=== PATIENT | female | born 1960 | race Caucasian/White ===

== ENCOUNTER 2017-02-21 09:23 | Inpatient (IN) ==
[2017-02-21 11:50] VITALS: BMI 25.0
[2017-02-21] MEDS ORDERED: DEXTROSE 50% SYRINGE 50ml (1 AMP) IVP PRN (12:45)
[2017-02-21] MEDS ORDERED: GLUCOSE ORAL GEL 40% 37.5gm PO PRN (12:45)
--- NOTE | 2017-02-21 13:37 | XRay Report ---
INDICATION: shortness of air PROCEDURE: CHEST 2-VIEWS UPRIGHT (PA & LAT) Encounter: Initial COMPARISON: June 20, 2015 FINDINGS: The lungs are clear without evidence of focal abnormal airspace opacity. There is no pleural effusion or pneumothorax. The heart size, mediastinal contours and pulmonary vascularity are within normal limits. Degenerative change in the spine. IMPRESSION: No acute cardiopulmonary disease. .
--- NOTE | 2017-02-21 13:47 | History & Physical Report ---
History of Present Illness Date: 02/21/17 Chief complaint: hypergylcemia, shortness of air. HPI: patient is a pleasant but profoundly non-compliant 56yo female known to our clinic. she was last in her usual state of health about 5 to 6 days ago. at about that time she started feeling progressively weak. she also developed pain and tenderness over the bladder as well as lower quadrants of the abdomen. she also developed some dysuria and increased freqeuncy. she has had diffuse body aches as well as an overall non-specific feeling of being unwell. aside from this she has been more SOA at rest and especially on exertion than usual. some increase in wheezing noted. runny nose noted as well. she was seen in the ER yesterday where vitals were stable. cbc was non acute but cmp showed sugars in the 500's and had mild pseudohyponatremia associated with this as well. troponin and EKG's were negative. UA was unremarkable except for glucosuria. for other information on this please see the notes in the EMR from that visit. patient notes her blood sugars have been as high as the 500's to 600's in general when she does check them which isn't often of late. it's hard to say whether she's been taking her medications appropriately. she was seen in the clinic today where she was feeling about the same. her a1C in clinic was greater than 14 and otherwise not readable. given patient's clinical dehydration, very high blood sugars and general non-compliance, it was opted to admit for observation and further workup. patient thinks she may have had fevers off an on. some chills. some mild to moderate diffuse body aches. she has had mild to moderate bifrontal headaches since all this started from the dehydration. come and go. not associated with any change in alertness/mentation at all and no other neurologic changes with it. no photophobia. no nuchal rigidity or pain and ROS negative for meninigitis/encephalitis. no stroke symptoms, seizure symptoms, focal neurologic deficits, cranial nerve symptoms at all. no ear pain, sinus pain, sore throat. no recent travel, sick exposures, camping, burrows exposures, rashes. no chest pain at all on rest or exertion. no new or changing orthopnea. no PND. no new edema. no leg asymmetry. no palpitations. no hemoptysis. occasional yellow sputum production noted. no dizziness, syncope, orthostatic symptoms right now. appetite generally poor with this. no abdominal pain other than noted above. abdominal pain not generally effected by food. no GERD symptoms, nausea, vomiting, diarrhea, constipation, bloody/ black stools, flank pain, renal colic symptoms. no urinary/bowel incontinance. no mood changes and patient denies depression symptoms, homicidal/suicidal ideations. no padmini, psychotic symptoms. ROS negative for altered mentation, obtundation, changes in baseline cognition. no falls, trauma or injuries. see above and below for other ROS. Review of Systems - Constitutional Constitutional: Present: as per HPI - EENMT Eyes: Present: as per HPI EENMT Comments: see above HPI. 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 - Musculoskeletal Musculoskeletal: Present: as per HPI. Absent: back pain, muscle weakness - Integumentary/Breasts Integumentary: Present: as per HPI Integumentary Comments: no new skin changes. no rashes. - Neurological Neurological: Present: as per HPI - Psychiatric Psychiatric: Present: as per HPI - Endocrine Endocrine: Present: as per HPI Endocrine Comments: no thyroid symptoms other than noted in the above. - Hematologic/Lymphatic Hematologic/Lymphatic: Present: as per HPI Hematologic/Lymphatic Comments: no abnormal bleeding. she states she did look a bit pale a few days ago but this has resolved per patient. - Allergic/Immunologic Allergic/Immunologic: Present: as per HPI Allergic/Immunologic: see above for allergies and ADR's. [facility] Patient Stated Medical History Cerebrovascular Accident Yes: 2009 R SIDE AFFECTED 2 STENTS INSERTED Dental Problems Yes: NO DENTURES Angina Yes Coronary Artery Disease Yes Hypertension Yes Other Cardiology Yes Asthma Yes Chronic Obstructive Pulmonary Yes Disease (COPD) Other Respiratory Yes: ALLERGIES Diabetes Mellitus Type 2 Yes: POOR CONTROL Hx Urinary Tract Infection Yes Other Hematologic Yes: mass on uterus had blood loss Cellulitis Yes: LEFT HAND FROM BIRD BITE Bipolar Disorder Yes Depression Yes Substance Use Disorder Yes: HX OF METH USE clean since 2012 Medical History Updates: Diabetes. Hypercholesterolemia. Hypertension. ALLERGIES. Coronary artery disease. Current COPD. CVA. Back pain. Anxiety. Depression. Drug abuse Surgical History: Cardiac cath. Cardiac stent. Hysterectomy Family History: -father . had T2DM and heart disease. -mother alive. has T2DM and heart disease. -lots of T2DM and heart disease in family in general. - Social History Smoking status: Current every day smoker Social history: -lives at home -current longtime smoker and patient states she only smokes 5 cigarettes per day now. -denies alcohol use -previous history of polysubstance abuse including methamphetamine but reportedly not active for years. Medications Home Medications Medication Instructions Recorded Confirmed Type Lisinopril 10 mg PO DAILY #0 12/13/14 02/21/17 History Gabapentin 300 mg PO QID #0 06/20/15 02/19/17 History Insulin Glargine,Hum.rec.anlog 72 unit SQ BID #0 06/20/15 02/21/17 History [Lantus Solostar] Albuterol Sulfate [Ventolin Hfa] 1 - 2 puff INH Q6H PRN #0 01/09/16 02/21/17 History Aspirin [Aspirin EC] 81 mg PO DAILY #0 01/09/16 02/21/17 History Atorvastatin Calcium 40 mg PO HS #0 01/09/16 02/21/17 History Buspirone HCl 30 mg PO BID #0 01/09/16 02/21/17 History Metformin HCl 500 mg PO BID #0 01/09/16 02/21/17 History Desvenlafaxine [Desvenlafaxine ER] 50 mg PO DAILY 02/19/17 02/19/17 History Allergies Allergy/AdvReac Type Severity Reaction Status Date / Time Penicillins Allergy Unknown EDEMA Verified 02/21/17 12:22 Exam Vital Signs: Temperature 97.3 F 02/21/17 11:48 Pulse Rate 68 02/21/17 11:48 Respiratory Rate 20 02/21/17 11:48 Blood Pressure 141/85 H 02/21/17 11:48 Pulse Oximetry 98 02/21/17 11:48 Oxygen Delivery Method Room Air Height: 1.55 m Weight: 60.2 kg Body Mass Index: 25.0 - Constitutional Present: no acute distress, cooperative. Absent: diaphoretic, disheveled, combative, agitated, somnolent, obtunded - Routine HEENT Exam Head: Present: normocephalic, atraumatic Eye: Present: EOMI, PERRL, normal accommodation. Absent: conjunctival icterus, scleral injection, conjunctivae pink, periorbital swelling, nystagmus ENT: Present: mucous membranes dry, oropharynx clear, nares patent, external ear normal, TM's clear bilaterally. Absent: sinus tenderness Comments: throat clear. no mastoid tenderness b/l at this time. - Routine Neck Exam Present: supple, full ROM, trachea midline. Absent: JVD, lymphadenopathy, thyromegaly, tenderness, swelling, tracheal deviation, trauma, meningismus Comments: no photophobia. no clinical evidence of meningitis at this time. - Routine Chest/Breast/Axilla Exam Chest wall: Absent: tenderness - Routine Respiratory Exam Present: wheezes (see below.). Absent: accessory muscle use, dyspnea, rales, respiratory distress, rhonchi, stridor, crackles, distant breath sounds Comments: diminished but still moving air failure well. no respiratory distress. mild bibasilar wheezes on end expiration at this time. all findings above bilateral. - Routine Cardiovascular Exam Present: RRR Comments: grade 2/6 murmur heard at LSB. no stigmata of heart failure. no edema bilaterally at this time. pulses normal in all 4 extremities bilaterally at this time. legs symmetrical and compartments soft b/l in LE's at this time. clinically well perfused in all 4 extremities at this time. - Routine Abdominal Exam Present: soft (x4.), normoactive bowel sounds (X4.), non distended (X4.), non tender (X4.). Absent: tenderness (X4.), distended (X4.), rebound (X4.), organomegaly (X4.), mass Comments: no evidence of acute abdomen at this time. - Routine Exam Comments: mild to moderate discomfort in palpation over bladder at this time. - Routine Extremities Exam Comments: see above. - Routine Back/Spine/Pelvis Exam Comments: no flank pain bilaterally. Micah's test negative b/l at this time. - Routine Skin Exam Comments: intact. no rashes or acute changes to uncovered areas. - Routine Neurological Exam Present: moving all extremities, normal tone, normal speech CN2-12 in tact. sensation/motor/muscle strength/DTR's normal and symmetrical b/ l in extremities X4. PERRLA. EOMI. no nystagmus. no photophobia or clinical evidence of meningitis at this time. consensual reflex in tact. gait stable and unchanged from previous baseline. - Routine Psychiatric Exam Present: normal affect, normal thought process, cooperative. Absent: suicidal ideation, homicidal ideation, auditory hallucinations, visual hallucinations, tactile hallucinations, depressed, anxious, agitated, paranoid, manic Comments: cognition and affect stable from patient's previous baseline. Results - Labs CBC & Chem 7: 02/21/17 13:15 02/21/17 13:15 Assessment and Plan DVT Prophylaxis: Lovenox GI Prophylaxis: other (PO diet.) Resuscitation Status: Do Not Intubate Assessment and Plan: dehydration, dysuria, urinary freqeuncy and weakness from uncontrolled T2DM, hyperglycemia SOA and mild COPD exacerbation Diabetic neuropathy bladder tenderness and bilateral lower quadrant pain HTN hyperlipidemia therapy non-compliance -admit to outpatient, routine vitals with call parameters, oxygen as needed , diabetic diet, I's and O's, daily weights, up with assist only, telemetry. -cbc, cmp, UA, urine culture, mg, phos, coags, troponin, CK, respiratory PCR , blood cx X2, sputum cx and gram stain, bnp lactic acid, procalcitonin, ketones now. if patient doesn't repond to current therapy a workup for PE is a consideration. -CXR, EKG, bedside PVR now. -cbc, cmp in the AM. -Dr. Alonso of endocrinology consulted. -start duonebs scheduled. start tessalon perles. start IV NS at 125ml/hr and considering more fluids depending on the above labs. continue home lantus BID, ASA, gabapentin. will see if patient is taking a statin. check GLUBS. start novolog s/s and hypoglycemia protocol. -hold home metformin and ventolin prn. -further management pending. depression anxiety disorder -continue home buspirone and desvenlafaxine. all other chronic medical conditions stable and no changes to plan of care at this time. ppx -SQ lovenox for DVT ppx pending the above. -PO diet as above for GI ppx -DNR/DNI. had extensive conversation with patient about indications for and details of cardiopulmonary rescuscitation including chest compressions, meds to regain appropriate heart rhythm/ restart heart, defibrillation, intubation and patient states she wants none of these. she was told that these can even be used as temporary measure (especially intubation) until such time as her body can support her own cardiorespiratory needs and she verbalizes understanding of all this. she still wants to be full DNR/DNI. -dispo heavily dependent on the above. - Time spent with patient greater than 35 minutes Sepsis Assessment - Evaluation SIRS Criteria: none
[2017-02-21] MEDS: ALBUTEROL/IPRATROPIUM 2.5mg-0.5mg/3ml NEB AEROSOL SCH ×2 (14:33→20:12)
--- NOTE | 2017-02-21 15:49 | Consult Note ---
- Consultation Pharmacy consult: Ciprofloxacin dosing The ciprofloxacin dose ordered for this patient is appropriate for complicated UTI. The following is from [employer]: Complicated (including pyelonephritis): Oral, immediate release: 250 to 500 mg every 12 hours for 7 to 14 days Oral, extended release (Cipro XR): 1,000 mg every 24 hours for 7 to 14 days IV: 200 to 400 mg every 8 to 12 hours for 7 to 14 days
[2017-02-21] MEDS: CIPROFLOXACIN PB 400 MG/200 ML BAG IV SCH (15:54)
[2017-02-21] MEDS: BENZONATATE 200 MG CAPSULE PO SCH ×2 (15:54→21:46)
[2017-02-21] MEDS: NS 1,000 ML IV SCH (15:55)
--- NOTE | 2017-02-21 16:49 | CT Scan Report ---
Indication: kidney stone protocol R flank pain PROCEDURE: CT renal wo con (stone nona): Encounter: Initial Comparison: None Technique: Axial CT images were performed through the abdomen and pelvis without intravenous contrast. Coronal and sagittal two-dimensional reformats. Automated Exposure Control and Iterative Reconstruction dose reducing techniques were utilized. Findings: Mild atelectasis in the lung bases. The unenhanced contours of the liver are unremarkable. The gallbladder is normal. The spleen, pancreas and adrenal glands are within normal limits. The bladder appears normal. Left kidney is normal. Right kidney is normal. No renal or ureteral stones. Uterus is absent. No free fluid. Mild sigmoid diverticulosis without evidence of acute diverticulitis. No bowel obstruction. The appendix is normal. Bone windows show mild degenerative change in the lower lumbar spine. Impression: No urolithiasis. No acute disease process seen. .
[2017-02-21] MEDS: INSULIN ASPART 100unit/ml INJECTION SQ PRN ×2 (17:20→22:19)
[2017-02-21] MEDS: GABAPENTIN 300 MG CAPSULE PO SCH ×2 (18:13→21:45)
[2017-02-21] MEDS ORDERED: INSULIN GLARGINE 100unit/ml INJECTION SQ SCH (21:00)
[2017-02-21] MEDS: BUSPIRONE 15 MG TABLET PO SCH (21:46)
[2017-02-21] MEDS: INSULIN GLARGINE 100unit/ml INJECTION SQ SCH (21:59)
[2017-02-21] MEDS ORDERED: HYDROCODONE/APAP 5mg/325mg TABLET PO PRN (22:48)
[2017-02-21] MEDS: ACETAMINOPHEN 325 MG TABLET PO PRN (23:08)
[2017-02-21] MEDS ORDERED: NS 500 ML IV ONE (23:43)
--- NOTE | 2017-02-22 00:34 | Progress Note ---
Subjective: called about O2 sats in high 80's and MAP's in 60's early this AM. patient seen at bedside. she actually feels much better. in addition to the previous history she denies any excessive tylenol or ibuprofen use. she also denies any history of intracranial bleeding, gastrointestinal bleeding, genitourinary bleeding, skin/soft tissue bleeding. her dysuria, is much improved. he lower abdominal and bladder pain is mostly gone now. energy has improved. no fatigue. she still has a mild to moderate bifrontal headache which is about the same from admission. no photophobia and ROS negative for meningitis. no altered mentation or confusion. she's not obtunded. when asked she notes her SOA from yesterday has completely resolved. she denies flank pain or pain around the kidney's. she has, since she's been here, had pain over the right SI joint. no falls, trauma or injuries to explain this. she's had this before off and on. no numbness/weakness/tingling down legs. no loss of bowel/bladder control. no vision changes, ear pain, sinus pain, sore throat. no URI symptoms. cough somewhat improved from yesterday and non-productive. no hemoptysis. no chest pain at rest or exertion. overall strength is improved. no fevers or chills. the pain to the back above is tender to touch. no new or changing headaches. no cranial nerve symptoms. no focal neurologic deficits. no new numbness/weakness/tingling anywhere. no seizure symptoms. no other abdominal pain. no nausea, vomiting, diarrhea, constipation, bloody/black stools. no BM since admission but she's only been here a short period of time. no bloody/black stools. no new urinary symptoms. she doesn't feel nearly as systemically unwell as she did before she came in. sugars have been more reasonable since admission. no new skin or soft tissue problems or rashes. no new edema or leg asymmetry. no recent PE or DVT risk factors. no mood changes. no new issues called on telemetry but the leads are failing at times. MONICA Winston is present for exam today. Objective Vital signs: Temperature 99.7 F 02/22/17 00:14 Pulse Rate 93 02/22/17 00:14 Respiratory Rate 18 02/22/17 00:14 Blood Pressure 91/52 02/22/17 00:14 Pulse Oximetry 90 02/22/17 00:14 Oxygen Delivery Method Room Air Rhythm: Normal Sinus Rhythm Body Mass Index: 25.0 - Constitutional Present: no acute distress, cooperative. Absent: combative, agitated, somnolent , obtunded Comments: very pleasant. short term memory in tact. - Routine HEENT Exam Head: Present: normocephalic, atraumatic Comments: no temporal artery tenderness or inflammation bilaterally at this time. - Routine Respiratory Exam Present: CTA bilaterally. Absent: accessory muscle use, dyspnea, decreased breath sounds, rales, respiratory distress, rhonchi, stridor, wheezes, crackles , distant breath sounds, diminished air movement Comments: lung sounds heard in all lung duncan b/l at this time. moving air well. no stridor or airway compromise. improved from admission overall. - Routine Cardiovascular Exam Comments: no changes from previous cardiac exam. stable from previous. legs symmetrical and compartments soft b/l in LE's at this time. pulses normal in extremities X4. extremities are warm and clinically well perfused in all 4 extremities at this time. not pale or diaphoretic at this time. no lower extremity edema bilaterally at this time. - Routine Abdominal Exam Present: soft (X4.), normoactive bowel sounds (X4.), non distended (X4.), non tender (X4.). Absent: tenderness (X4.), distended (X4.), rebound, guarding, firm, rigid, organomegaly Comments: no evidence of ascites or jaundice. no clinical evidence of acute abdomen at this time. - Routine Exam Comments: no tenderness over bladder area at this time. - Routine Extremities Exam Absent: calf tenderness, palpable cord, joint swelling, pallor, extremity cold to touch Comments: back examined. palpable tenderness over right SI joint. ROM generally unchanged grossly around that axis and only limited by pain. see above and below. - Routine Musculoskeletal Exam Musculoskeletal: Present: no joint swelling, moving extremities well - Routine Skin Exam Present: intact Comments: no new rashes or changes to uncovered areas from patient's usual baseline. - Routine Neurological Exam Present: alert, oriented X3, CN II-XII intact sensation/motor/muscle strength normal and symmetrical b/l in extremities X4 at this time. PERRLA. EOMI. no nystagmus. no photophobia and no clinical evidence of meningitis at this time. see above. no changes from previous exam from yesterday. - Routine Lymphatic Exam Lymphatic: Absent: lymphedema - Routine Psychiatric Exam Present: normal affect, normal thought process, cooperative. Absent: auditory hallucinations, visual hallucinations, tactile hallucinations, agitated, paranoid, manic Comments: affect and cognition at patient's usual baseline. Results - Labs CBC & Chem 7: 02/21/17 13:15 02/21/17 13:15 Microbiology Results: Microbiology 02/21/17 14:58 Urine, Voided (Cc/notcc) Urine Culture - Preliminary Culture Initiated - Results Pending 02/21/17 13:20 Peripheral/Iv Start Blood Culture - Preliminary Culture Initiated - Results Pending 02/21/17 13:15 Peripheral/Iv Start Blood Culture - Preliminary Culture Initiated - Results Pending Assessment and Plan DVT Prophylaxis: Lovenox GI Prophylaxis: other (PO diet.) Resuscitation Status: Do Not Intubate Assessment and Plan: dehydration, dysuria, urinary freqeuncy and weakness from uncontrolled T2DM, hyperglycemia acute complicated cystitis mild diabetic ketosis without clinical/lab evidence of ketoacidosis or hyperosmolar state. mild multifactorial transaminase and alk phos elevation which is asymptomatic sacroliliac joint dysfunction on the right X1 episode of hypotension and hypoxemia this AM. given other clinically improvement and physical exam findings this likely represents equipment failure. SOA and mild COPD exacerbation, resolved. Diabetic neuropathy bladder tenderness and bilateral lower quadrant pain HTN hyperlipidemia therapy non-compliance -continue outpatient, routine vitals with call parameters, oxygen as needed , diabetic diet, I's and O's, daily weights, up with assist only, telemetry. clinically patient looks excellent at bedside right now. will change out equipment and see if these issues normalize. -cbc generally normal. cmp with mild LFT elevation as above and otherwise unremarkable. mg, phos, coags, troponin, ck unremarkable. respiratory PCR unremarkable as was bnp. lactic acid, procalcitonin normal. ketones mildly elevated. GLUBS in 300's generally thus far. UA does show evidence of ketonuria which is no surprise. there is evidence of UTI as well. CXR yesterday normal. EKG non-acute yesterday and stable from previous. bedside PVR reportedly unremarkable. CT ab/pelvis with kidney stone protocol unremarkable and no pathology noted. see previous notes for other testing and results from this stay and from the last few days. -blood cx X2, urine cx, sputum cx and gram stain pending. repeat EKG, CXR now. echocardiogram ordered. -cbc, cmp ordered for AM. will add repeat troponin and bnp this AM also. move these labs up to be drawn right now. -continue duonebs scheduled, PO tessalon perles. bolus IV normal saline and then continue at IV NS at 125ml/hr. patient not clinically fluid overloaded at this time. continue IV cipro for now given the above and will likely convert to PO tomorrow given her risk factors for complicated UTI. continue home lantus BID for now and increase later on today most likely. see above for GLUBS. continue current ASA, gabapentin, novolog S/S, hypoglycemia protocol, GLUBS. -holding home metformin, statin and ventolin prn. -further management pending. depression anxiety disorder -continue home buspirone and desvenlafaxine. all other chronic medical conditions stable and no changes to plan of care at this time. ppx -SQ lovenox for DVT ppx. -PO diet as above for GI ppx -DNR/DNI. see previous notes for explaination of this. -dispo hopefully home later today but much depends on the above. - Time spent with patient 25 - 35 minutes Sepsis Assessment - Evaluation Sepsis screening result: No Definite Risk
[2017-02-22] MEDS ORDERED: IOHEXOL 350mg/ml 75ml INJECTION ONE (01:40)
[2017-02-22] MEDS ORDERED: NS 100 ML ONE ×2 (01:40→02:58)
[2017-02-22] MEDS ORDERED: SALINE FLUSH 10ml SYRINGE ONE (01:40)
[2017-02-22] MEDS: CIPROFLOXACIN PB 400 MG/200 ML BAG IV SCH ×2 (03:49→14:41)
[2017-02-22] MEDS: ALBUTEROL/IPRATROPIUM 2.5mg-0.5mg/3ml NEB AEROSOL SCH ×4 (03:57→20:29)
[2017-02-22] MEDS: NS 1,000 ML IV SCH ×3 (05:03→13:47)
[2017-02-22] MEDS: INSULIN ASPART 100unit/ml INJECTION SQ PRN ×4 (06:41→21:57)
[2017-02-22] MEDS: INSULIN GLARGINE 100unit/ml INJECTION SQ SCH (08:48)
[2017-02-22] MEDS: ACETAMINOPHEN 325 MG TABLET PO PRN ×2 (08:49→22:25)
[2017-02-22] MEDS: ENOXAPARIN 40 MG/0.4 ML INJECTION SQ SCH (08:49)
[2017-02-22] MEDS: GABAPENTIN 300 MG CAPSULE PO SCH ×4 (08:50→21:51)
[2017-02-22] MEDS: BUSPIRONE 15 MG TABLET PO SCH ×2 (08:50→21:51)
[2017-02-22] MEDS: Desvenlafaxine SR 50 MG TABLET PO SCH (08:51)
[2017-02-22] MEDS: ASPIRIN *EC* 81 MG TABLET PO SCH (08:51)
[2017-02-22] MEDS ORDERED: LISINOPRIL 10 MG TABLET PO SCH (09:00)
[2017-02-22] MEDS: BENZONATATE 200 MG CAPSULE PO SCH ×3 (10:49→21:51)
[2017-02-23] MEDS: ALBUTEROL/IPRATROPIUM 2.5mg-0.5mg/3ml NEB AEROSOL SCH ×4 (03:00→20:55)
[2017-02-23] MEDS: INSULIN ASPART 100unit/ml INJECTION SQ PRN ×4 (06:40→21:25)
[2017-02-23] MEDS: INSULIN GLARGINE 100unit/ml INJECTION SQ SCH ×3 (08:43→21:25)
[2017-02-23] MEDS: Desvenlafaxine SR 50 MG TABLET PO SCH (08:43)
[2017-02-23] MEDS: BUSPIRONE 15 MG TABLET PO SCH ×2 (08:43→21:26)
[2017-02-23] MEDS: GABAPENTIN 300 MG CAPSULE PO SCH ×4 (08:43→21:26)
[2017-02-23] MEDS: BENZONATATE 200 MG CAPSULE PO SCH ×3 (08:43→21:26)
[2017-02-23] MEDS: ASPIRIN *EC* 81 MG TABLET PO SCH (08:43)
[2017-02-23] MEDS: ENOXAPARIN 40 MG/0.4 ML INJECTION SQ SCH (08:44)
[2017-02-23] MEDS ORDERED: CIPROFLOXACIN 500 MG TABLET PO SCH (09:00)
--- NOTE | 2017-02-23 10:06 | CT Scan Report ---
Indication: Dyspnea PROCEDURE: CT angio pulm emboli: Encounter: Initial Comparison: None Technique: Axial CT pulmonary angiographic phase images were performed through the chest after the administration of intravenous contrast. Coronal and Sagittal MIP reconstructed images were created and reviewed. Automated Exposure Control and Iterative Reconstruction dose reducing techniques were utilized. Contrast: Omnipaque 350 49 mL Findings: Pulmonary arteries: Exam is diagnostic to the segmental pulmonary arterial level. No filling defects identified to suggest a pulmonary embolus. Other findings: Bibasilar dependent atelectasis with some more focal consolidation in the medial lower lobes. No pneumothorax or effusion. No axillary or mediastinal adenopathy. Heart size is normal. No pericardial effusion. The upper abdomen shows no acute findings. Left carotid artery stent, incompletely evaluated. Impression: No pulmonary embolus. Lower lobe atelectasis versus pneumonia. There is a preliminary report by [facility]. .
--- NOTE | 2017-02-23 15:19 | Progress Note ---
Subjective: no acute issues overnight. no events called on telemetry. patient states she' s doing well and has no complaints. no headaches, stroke symptoms, syncope, dizziness, ear pain, sinus pain, sore throat. no fevers, chills, body aches, weakness, fatigue. no focal neurologic deficits. no chest pain, SOA, orthopnea , PND, cough, sputum production, hemoptysis. no palpitations. no skin changes or new rashes. no edema. no abdominal pain, GERD symptoms, nausea, vomiting, diarrhea, constipation, bloody/black stools, hematemesis, coffee ground emesis, melena, BRBPR. no dysuria, hematuria, urinary frequency, flank pain, nocturia, urinary/bowel incontinance. denies depression symptoms. no abdominal pain when she eats. appetite good. denies homicidal/suicidal ideations. no symptoms of padmini, psychosis, delerium, altered mentation. not obtunded. no new issues otherwise at this time. Objective Vital signs: Temperature 97.9 F 02/23/17 12:20 Pulse Rate 64 02/23/17 12:20 Respiratory Rate 18 02/23/17 14:33 Blood Pressure 122/77 02/23/17 12:20 Pulse Oximetry 95 02/23/17 12:20 Oxygen Delivery Method Room Air Oxygen Flow Rate 1 Weight: 63.5 kg - Constitutional Present: no acute distress, cooperative Comments: not combative, agitated, obtunded, - Routine HEENT Exam Head: Present: normocephalic, atraumatic Comments: mucous membranes moist. - Routine Respiratory Exam Comments: LCTAB. no crackles, wheezes, rales. no accessory muscle use. no retractions or respiratory distress. lung sounds heard in all lung duncan b/l at this time. no stridor or airway compromise. moving air well. - Routine Cardiovascular Exam Comments: cardiac exam stable from previous. legs without edema. legs symmetrical and compartments soft b/l at this time. clinically well perfused in all 4 extremities b/l at this time. - Routine Abdominal Exam Present: soft (X4.), normoactive bowel sounds (X4.), non distended (X4.), non tender (X4) Comments: no rebound, guarding, rigidity, organomegally X4. no ascites, jaundice or distension. - Routine Exam Comments: no tenderness over bladder area. no flank pain bilaterally at this time. - Routine Extremities Exam Comments: see above. - Routine Back/Spine/Pelvis Exam Comments: no changes from previous. no evidence of acute, chronic or worsening neurovascular compromise b/l in LE's at this time. - Routine Musculoskeletal Exam Musculoskeletal: Present: moving extremities well - Routine Skin Exam Present: intact Comments: no new changes or rashes to uncovered areas b/l at this time. no swollen, boggy or inflammed joints. - Routine Neurological Exam Present: alert, oriented X3 no focal deficits grossly. - Routine Psychiatric Exam Present: normal affect, normal thought process Comments: no hallucinations. no clinical evidence of depression, padmini, altered mentation. not obtunded. Results - Labs CBC & Chem 7: 02/23/17 04:48 02/23/17 04:48 Microbiology Results: Microbiology 02/21/17 13:20 Peripheral/Iv Start Blood Culture - Preliminary No Growth After 2 Days 02/21/17 13:15 Peripheral/Iv Start Blood Culture - Preliminary No Growth After 2 Days 02/21/17 14:58 Urine, Voided (Cc/notcc) Urine Culture - Final Escherichia coli Assessment and Plan DVT Prophylaxis: Lovenox GI Prophylaxis: other (PO diet.) Resuscitation Status: DNR/DNI. Assessment and Plan: dehydration, dysuria, urinary freqeuncy, severe hyperglycemia and weakness from uncontrolled T2DM. acute elevated alk phos and transaminases acute complicated cystitis mention of atelectasis versus community acquired pneumonia on CT chest. dilutional anemia mild diabetic ketosis without clinical/lab evidence of ketoacidosis or hyperosmolar state. sacroliliac joint dysfunction on the right methamphetamine abuse X1 episode hypoxemia and hypotension 2 nights ago, no issues since. SOA and mild COPD exacerbation, resolved. Diabetic neuropathy HTN hyperlipidemia therapy non-compliance -continue inpatient, routine vitals with call parameters, oxygen as needed, diabetic diet, I's and O's, daily weights, up with assist only, telemetry. will ambulate TID with assist. -cbc's with hgb of 11.7 which is dilutional and is otherwise unremarkable. cmp's with significant transaminase and alk phos elevated as compared to yesterday and otherwise unremarkable. troponins, bnp's, CT chest with PE protocol unremarkable. GLUBS down to the 100's now. urine culture with echoli which is shields sensitive. repeat EKG the other day looked ok. ketosis has resolved. see previous notes for other testing and results from this stay. -blood cx X2 negative thus far but stilkl pending. sputum cx and gram stain pending. echocardiogram pending. RUQ abdominal ultrasound pending. -cbc, cmp, acute hepatitis panel, HIV to be done in the AM. -continue duonebs scheduled, PO tessalon perles. IV fluids discontinued. d /c cipro and covert to PO levaquin as it would cover the possible pneumonia as well as the urinary infection. lantus increased to 75 BID and sugars improved. continue GLUBS, hypoglyemia protocol, novolog s/s. continue current ASA, gabapentin. d/c tylenol. -patient consulted length about abstaining from methamphetamine and illicit substances. -continue holding home metformin, statin and ventolin prn. -further management pending. depression anxiety disorder -continue home buspirone and desvenlafaxine. all other chronic medical conditions stable and no changes to plan of care at this time. ppx -continue SQ lovenox for DVT ppx. -continue PO diet as above for GI ppx -DNR/DNI. see previous notes for explaination of this. -dispo sugars much improved and UTI being treated. overall patient doing better. jump in LFT's today a concern. would often be able to be followed as outpatient given it's not symptomatic but patient's poor compliance and tendency to not follow up as outpatient would mean keeping her another day and following on the above testing is needed. - Time spent with patient 25 - 35 minutes Sepsis Assessment - Evaluation Sepsis screening result: No Definite Risk
[2017-02-23] MEDS ORDERED: CIPROFLOXACIN 500 MG TABLET PO ONE (21:15)
[2017-02-24] MEDS: ALBUTEROL/IPRATROPIUM 2.5mg-0.5mg/3ml NEB AEROSOL SCH ×3 (03:20→15:06)
[2017-02-24] MEDS: LEVOFLOXACIN 750 MG TABLET PO SCH ×2 (05:25→06:25)
[2017-02-24] MEDS: INSULIN ASPART 100unit/ml INJECTION SQ PRN (05:26)
--- NOTE | 2017-02-24 07:44 | Ultrasound Report ---
Indication: elevated liver function testing. PROCEDURE: US abdomen limited: Encounter: Initial Comparison: Renal CT dated February 21, 2017 Technique: Grayscale and color Doppler sonographic imaging of the right upper quadrant of the abdomen was performed. Findings: Hepatic parenchyma appears mildly echogenic without evidence for focal mass. The gallbladder is contracted precluding adequate evaluation for wall thickening. No obvious stone disease. Sonographic Mckenzie sign was negative. Both the intra and extrahepatic biliary system are of normal caliber with the common duct measuring 2 mm in dimension. Pancreas is not well seen due to shadowing bowel gas. The right kidney is present without collecting system dilatation. The right kidney measures 12.8 cm in length. Impression: Probable hepatic steatosis. Limited evaluation of the gallbladder due to the contracted state. There is a preliminary report by [facility]. .
[2017-02-24] MEDS: INSULIN GLARGINE 100unit/ml INJECTION SQ SCH (08:27)
[2017-02-24] MEDS: ENOXAPARIN 40 MG/0.4 ML INJECTION SQ SCH (08:27)
[2017-02-24] MEDS: ASPIRIN *EC* 81 MG TABLET PO SCH (08:28)
[2017-02-24] MEDS: GABAPENTIN 300 MG CAPSULE PO SCH ×3 (08:28→17:00)
[2017-02-24] MEDS: BUSPIRONE 15 MG TABLET PO SCH (08:28)
[2017-02-24] MEDS: BENZONATATE 200 MG CAPSULE PO SCH ×2 (08:28→15:40)
[2017-02-24] MEDS: Desvenlafaxine SR 50 MG TABLET PO SCH (08:29)
[2017-02-24 12:01] VITALS: RESP 16; O2SAT 95
--- NOTE | 2017-02-24 14:01 | Progress Note ---
Subjective: patient doing very well today. feels "wonderful" she says. no issues at all. she's happy to see her blood sugars so much better controlled. no headaches, stroke symptoms, syncope, focal neurologic deficits, dizziness, orthostatic symptoms, falls, trauma, injuries. no URI symptoms. no chest pain, SOA, cough , sputum production, hemoptysis, palpitations, abdominal pain, nausea, vomiting. right sacroiliac pain is gone. no numbness/weakness/tingling down legs. no loss of bowel/bladder control. no urinary/bowel incontinance. no GERD symptoms. appetite has been good. no hematemesis, coffee ground emesis, diarrhea, constipation. X1 normal BM in the last 24 hours. no bloody/black stools. no dysuria, hematuria, urinary frequency, pain above the bladder. no flank pain or renal colic symptoms. no skin/soft tissue changes or rashes. no mood changes. no delerium or altered mentation symptoms. she denies homicidal/ suicidal ideations. no night sweats or other constitutional symptoms. no symptoms consistent with psychosis. no events called on telemetry. no acute issues overnight. no abnormal bleeding. no new issues otherwise at this time. Objective Vital signs: Temperature 98.3 F 02/24/17 11:59 Pulse Rate 66 02/24/17 11:59 Respiratory Rate 16 02/24/17 11:59 Blood Pressure 103/65 02/24/17 11:59 Pulse Oximetry 95 02/24/17 11:59 Oxygen Delivery Method Room Air Oxygen Flow Rate 1 Weight: 63.4 kg - Constitutional Present: no acute distress, cooperative. Absent: combative, agitated, somnolent , obtunded - Routine HEENT Exam Head: Present: normocephalic, atraumatic Comments: mucous membranes moist at this time. clinically euvolemic at this time. - Routine Respiratory Exam Present: CTA bilaterally. Absent: accessory muscle use, dyspnea, decreased breath sounds, rales, respiratory distress, rhonchi, stridor, wheezes, crackles , distant breath sounds, diminished air movement Comments: no retractions or accessory muscle use. moving air well. lung sounds heard in all lung duncan b/l at this time. - Routine Cardiovascular Exam Comments: cardiac exam stable from previous. unchanged. legs symmetrical and compartments soft b/l in LE's at this time. clinically well perfused in all 4 extremities bilaterally at this time. - Routine Abdominal Exam Present: soft (X4.), normoactive bowel sounds (x4.), non distended (x4.), non tender (x4.). Absent: tenderness (X4.), distended (x4.), rebound, guarding, firm, rigid, organomegaly Comments: no ascites or jaundice. no clinical evidence of liver failure at this time. no evidence of acute abdomen at this time. - Routine Exam Comments: no tenderness over bladder area. no flank pain bilaterally. - Routine Extremities Exam Comments: see above. - Routine Musculoskeletal Exam Musculoskeletal: Present: normal strength, moving extremities well. Absent: joint swelling - Routine Skin Exam Comments: no new changes or rashes to uncovered areas from previous baseline at this time. - Routine Neurological Exam Present: alert, oriented X3 no changes from patient's previous baseline. no focal deficits grossly. no photophobia. no clinical evidence of meningitis at this time. - Routine Lymphatic Exam Lymphatic: Absent: lymphedema - Routine Psychiatric Exam Present: normal affect, normal thought process. Absent: auditory hallucinations , visual hallucinations, tactile hallucinations, depressed, anxious, agitated, paranoid, manic Comments: affect and cognition stable from patient's usual baseline. no clinical evidence of altered mentations, delerium as compared to previous. Results - Labs CBC & Chem 7: 02/24/17 13:32 02/24/17 04:21 Microbiology Results: Microbiology 02/21/17 13:20 Peripheral/Iv Start Blood Culture - Preliminary No Growth After 3 Days 02/21/17 13:15 Peripheral/Iv Start Blood Culture - Preliminary No Growth After 3 Days 02/21/17 14:58 Urine, Voided (Cc/notcc) Urine Culture - Final Escherichia coli Assessment and Plan DVT Prophylaxis: Lovenox, other (ambulation. patient reportedly tolerating this well.) GI Prophylaxis: other (PO diet.) Resuscitation Status: DNR/DNI Assessment and Plan: dehydration, dysuria, urinary freqeuncy, severe hyperglycemia and weakness from uncontrolled T2DM. acute elevated alk phos and transaminases, improved. acute complicated cystitis mention of atelectasis versus community acquired pneumonia on CT chest without clinical evidence as such. mild dilutional anemia mild diabetic ketosis and ketonemia without clinical/lab evidence of ketoacidosis or hyperosmolar state. sacroliliac joint dysfunction on the right, resolved methamphetamine abuse X1 episode hypoxemia and hypotension 3 nights ago, no issues since. SOA and mild COPD exacerbation, resolved. Diabetic neuropathy HTN hyperlipidemia therapy non-compliance -likely discharge later today. until then continue inpatient, routine vitals with call parameters, oxygen as needed, diabetic diet, I's and O's, daily weights, upwith assist only, telemetry, ambulate TID with assist. -cbc's with hgb down to 10.9 this AM and hct down to 34.1. H and H at 1PM today stable and no evidence of bleeding so will discharge today pending Dr. Alonso input. CMP with mild improvement in transaminases and alk phos. RUQ abdomen generally unremarkable and non-acute. GLUBS in 100's now. see previous notes for other testing and results from this stay. -acute hepatitis pending and will follow HIV as outpatient. echocardiogram pending. blood cultures negative to date but still officially pending. -continue duonebs scheduled, PO tessalon perles, PO levaquin, SQ lantus at current dose. continue GLUBS, novolog s/s, hypoglycemia protocol, ASA, gabapentin while inpatient. see discharge summary for outpatient meds. -patient consulted length about abstaining from methamphetamine and illicit substances. -continue holding home metformin, statin and ventolin prn. -Dr. Alonso, endocrinology consulted and awaiting his input before discharge. depression anxiety disorder -continue home buspirone and desvenlafaxine. all other chronic medical conditions stable and no changes to plan of care at this time. ppx -continue SQ lovenox for DVT ppx while inpatient. -continue PO diet as above for GI ppx while inpatient. -DNR/DNI. see previous notes for explaination of this. -dispo sugars look good. urinary issues resolved. LFT 's improved. discharge today pending input from endocrinology. - Time spent with patient discharge greater than 30 minutes Sepsis Assessment - Evaluation Sepsis screening result: No Definite Risk
--- NOTE | 2017-02-24 15:14 | Consultation ---
DATE OF CONSULT 02/24/2017 REASON FOR CONSULTATION Uncontrolled type 2 diabetes mellitus. HISTORY OF PRESENT ILLNESS The patient reports having had type 2 diabetes for about the past seven years. It has been treated by insulin. At home she was taking 72 units of Lantus at bedtime and NovoLog by sliding scale which was usually 10 units before each meal. In spite of this she was running blood sugars in the 500s. She does not check her blood sugars very often and is reported to be fairly noncompliant. She had a hemoglobin A1c done with Dr. Ramos that was greater than 14. When she was admitted she was fairly dehydrated and a little short of breath. She was found to have cystitis and a possible pneumonia and is now receiving antibiotics. Her home metformin has been held. She feels okay and had her best glucose reading after breakfast this morning at 145. However, the previous blood sugars were all greater than 200 for the last 24 hours. ALLERGIES PENICILLINS. PAST MEDICAL HISTORY Remarkable for background retinopathy and peripheral neuropathy in her legs and feet. She also has hypertension and history of stroke. She says that she has been told she had some kind of thyroid problem, but doesn't know what it is. She is on no thyroid medications, however. FAMILY HISTORY Positive for type 2 diabetes mellitus and heart disease in many family members. SOCIAL HISTORY Smokes five cigarettes per day. Does not use alcohol. More remote history of polysubstance abuse including methamphetamine. REVIEW OF SYSTEMS In addition to those things mentioned in HPI, the patient reports paresthesias in her legs and feet, nocturia frequently and occasional heart palpitations and hand tremors. PHYSICAL EXAMINATION VITAL SIGNS: Afebrile. Blood pressure 103/65. Pulse 66. Respirations 16. HEENT: Head atraumatic and normocephalic. NECK: Without thyromegaly or lymphadenopathy. LUNGS: Clear. HEART: Regular rate and rhythm. ABDOMEN: Normal bowel sounds. Soft and nontender. EXTREMITIES: Without edema. NEUROLOGICAL: Reveals absent light touch sensation in the right great toe. LABORATORY Labs reviewed. ASSESSMENT 1. Type 2 diabetes mellitus with hyperglycemia. She has been very poorly controlled. The control in the hospital has been better although she is receiving a rather large amount of basal insulin with hardly any rapid acting insulin. We may need to have her use regularly scheduled rapid acting insulin routinely for meals and not just sliding scale as needed, but given her poor compliance with medication in the past, we are more likely to get compliance from just two shots of Lantus. She may not be very compliant at all trying to take five injections daily if she sometimes is even missing getting two injections daily. 2. Chronic insulin use. 3. Hypertension, controlled. 4. Peripheral neuropathy, mild. 5. Question of thyroid problem which I do not detect on physical exam. RECOMMENDATIONS With the patient's glucose levels now down to 145 on most recent check, I would not be comfortable increasing insulin anymore at this time until we can see how the basal dose increase does throughout the rest of the day. If she does not get hypoglycemic, then she could probably go home on this higher dose of Lantus with careful instruction how important it will be to take it twice a day. If she is to remain in the hospital much longer, we could consider putting her on scheduled doses of NovoLog for meals, but I can see where compliance might be a real problem. With a TSH currently 4.23, it is unlikely this is figuring into her glucose intolerance. Thank you very much for allowing me to assist in this lady's care. I will follow her along with you while she remains in the hospital. JEANCARLOS
--- NOTE | 2017-02-24 15:48 | Echocardiogram ---
DATE OF PROCEDURE February 24, 2017 REFERRING PHYSICIAN Doe Ramos DO This is a two-dimensional echo with spectral Doppler, color-flow and M-mode. It was obtained in a patient with shortness of air. Left atrial dimension is at the upper limits of normal. Left ventricle end- diastolic dimension is normal. Left ventricle wall thickness is normal. LV systolic function is normal with ejection fraction of 71%. Right atrium is normal. Right ventricle is normal. Aortic root dimension is normal. Mitral valve is morphologically normal with no stenosis or insufficiency. Aortic valve appears to be normal. Tricuspid valve shows mild tricuspid regurgitation with normal estimated pulmonary artery systolic pressure of 28. Pulmonary valve shows mild pulmonary insufficiency. There is no pericardial effusion. IMPRESSION 1. Normal LV systolic function with ejection fraction of about 71%. 2. Mild tricuspid regurgitation with normal estimated pulmonary artery systolic pressure of 28. 3. Mild pulmonary insufficiency. MTDD
--- NOTE | 2017-02-24 16:11 | Discharge Instructions ---
Discharge Plan - Med Rec/Dispo Referrals/Follow Up: Doe Valentine, [Family Provider] - 1 Week (please have patient do cbc and cmp of this week (02/27/17) at [facility] and sent to Dr. Valentine. ICD 10 code for this is D64.9 and R94.5. ) [place] Instructions: Diabetic Hyperglycemia (GEN) Additional Instructions: MENTAL HEALTH APPOINTMENT WITH JUDIE GUERRERO AT [facility] ([facility] ON Fri02-26-17 AT 12:45 PM. TRANSPORTATION WILL PICK YOU UP AT 12:30 PM. -TO NURSING. PLEASE DISCONTINUE ALL LINES, IV'S AND TELEMETRY THE PATIENT DIDN' T COME IN ON BEFORE DISCHARGE. -PLEASE HAVE PATIENT DO CBC AND CMP FRIDAY OF THIS WEEK (02/27/17) AND SEND TO DR. VALENTINE. ICD 10 FOR THIS IS D64.9 AND R94.5. Prescriptions: New Aspirin *EC* [Ecotrin] 81 mg PO DAILY tablet Benzonatate [Tessalon Perles] 100 mg PO TID PRN #21 capsule PRN Reason: Cough /Congestion Buspirone [Buspar] 15 mg PO BID #300 tablet Gabapentin [Neurontin] 300 mg PO QID capsule Levofloxacin [Levaquin] 750 mg PO ACB #4 tablet Desvenlafaxine Sr [Pristiq] 50 mg PO DAILY tablet Continue Albuterol Sulfate [Ventolin Hfa] 1 - 2 puff INH Q6H PRN #0 PRN Reason: PRN ORDERS Lisinopril 10 mg PO DAILY #0 Changed Insulin Glargine,Hum.rec.anlog [Lantus Solostar] 75 unit SQ BID #1 insuln.pen Discontinued Metformin HCl 500 mg PO BID #0 Atorvastatin Calcium 40 mg PO HS #0 Hydrocodone/APAP 5/325 [[place] 5/325] 1 tab PO Q4HR PRN #12 tab PRN Reason: Pain Gabapentin 300 mg PO QID #0 Aspirin [Aspirin EC] 81 mg PO DAILY #0 Buspirone HCl 30 mg PO BID #0 Desvenlafaxine [Desvenlafaxine ER] 50 mg PO DAILY Ondansetron [Zofran Odt] 1 tab PO Q4HR PRN #18 tab PRN Reason: Nausea Discharge Instructions/Outpatient Orders: Final Provider Discharge Instructions Location: Determined By Patient - Disposition 01 Discharged Home, Self-Care
[2017-02-24 18:57] VITALS: BP 108/68; PULSE 75; TEMP 97
--- NOTE | 2017-02-24 21:33 | Discharge Instructions ---
Discharge Plan - Med Rec/Dispo Referrals/Follow Up: Doe Valentine, [Family Provider] - 1 Week (please have patient do cbc and cmp of this week (02/27/17) at [facility] and sent to Dr. Valentine. ICD 10 code for this is D64.9 and R94.5. APPOITMENT ON 03/06 AT 8:[address] VALENTINE.) [facility] Instructions: Diabetic Hyperglycemia (GEN) Additional Instructions: MENTAL HEALTH APPOINTMENT WITH JUDIE GUERRERO AT [facility] ([facility] ON Fri02-26-17 AT 12:45 PM. TRANSPORTATION WILL PICK YOU UP AT 12:30 PM. -TO NURSING. PLEASE DISCONTINUE ALL LINES, IV'S AND TELEMETRY THE PATIENT DIDN' T COME IN ON BEFORE DISCHARGE. -PLEASE HAVE PATIENT DO CBC AND CMP FRIDAY OF THIS WEEK (02/27/17) AND SEND TO DR. VALENTINE. ICD 10 FOR THIS IS D64.9 AND R94.5. Prescriptions: New Aspirin *EC* [Ecotrin] 81 mg PO DAILY tablet Benzonatate [Tessalon Perles] 100 mg PO TID PRN #21 capsule PRN Reason: Cough /Congestion Buspirone [Buspar] 15 mg PO BID #300 tablet Gabapentin [Neurontin] 300 mg PO QID capsule Levofloxacin [Levaquin] 750 mg PO ACB #4 tablet Desvenlafaxine Sr [Pristiq] 50 mg PO DAILY tablet Continue Albuterol Sulfate [Ventolin Hfa] 1 - 2 puff INH Q6H PRN #0 PRN Reason: PRN ORDERS Lisinopril 10 mg PO DAILY #0 Changed Insulin Glargine,Hum.rec.anlog [Lantus Solostar] 75 unit SQ BID #1 insuln.pen Discontinued Metformin HCl 500 mg PO BID #0 Atorvastatin Calcium 40 mg PO HS #0 Hydrocodone/APAP 5/325 [[place] 5/325] 1 tab PO Q4HR PRN #12 tab PRN Reason: Pain Gabapentin 300 mg PO QID #0 Aspirin [Aspirin EC] 81 mg PO DAILY #0 Buspirone HCl 30 mg PO BID #0 Desvenlafaxine [Desvenlafaxine ER] 50 mg PO DAILY Ondansetron [Zofran Odt] 1 tab PO Q4HR PRN #18 tab PRN Reason: Nausea Discharge Instructions/Outpatient Orders: Final Provider Discharge Instructions Location: Determined By Patient - Disposition 01 Discharged Home, Self-Care
--- NOTE | 2017-02-25 07:49 | Discharge Summary ---
DATE OF ADMISSION: 02/21/2017 DATE OF DISCHARGE: 02/24/2017 MODE OF ADMISSION: Inpatient ATTENDING PHYSICIAN Dr. Ramos of [facility] ADMITTING PHYSICIAN Dr. Ramos of [facility] CONSULTING PHYSICIAN Dr. Alonso of [facility] ANCILLARY SERVICES DURING THE STAY Pharmacy did assist with dosing of some medications. DISCHARGE DIAGNOSES 1. Dehydration, acute complicated cystitis and severe hyperglycemia as well as weakness from uncontrolled type 2 diabetes. 2. Mild elevation in alkaline phosphatase and transaminases, which is improving. Uncertain cause at this time. 3. Mention of atelectasis versus community-acquired pneumonia on CT chest without clinical evidence of pneumonia. 4. Mild dilutional anemia. 5. Mild diabetic ketosis and ketonemia without clinical/lab evidence of ketoacidosis or hyperosmolar state. 6. Right-sided sacroiliac joint dysfunction which is chronic. 7. Methamphetamine abuse 8. One episode of hypoxemia and hypotension on day one of admission with no issues before or since. 9. Mild COPD exacerbation which has resolved. 10. Diabetic neuropathy. 11. Hypertension. 12. Hyperlipidemia. 13. Hypokalemia. 14. Severe medical noncompliance. 15. Depression. 16. Anxiety disorder. DISCHARGE MEDICATIONS 1. Aspirin - enteric coated - 81 mg p.o. daily. 2. Tessalon Perles 100 mg p.o. t.i.d. p.r.n. cough/congestion x 7 days with no refills. 3. BuSpar 15 mg p.o. b.i.d. There was some question whether the patient was on 30 mg p.o. daily or 15, and the patient stated she was on 15 mg p.o. b.i.d. 4. Gabapentin 300 mg p.o. q.i.d. 5. Levaquin 750 mg p.o. daily x 4 days with no refills. 6. Pristiq Sustained Release 50 mg p.o. daily. 7. Ventolin HFA, 90 mcg, 1-2 puffs inhaled q.6h. p.r.n. shortness of air/ wheezing. 8. Lantus Solostar, 75 units subcutaneously b.i.d. This was increased from 72 units b.i.d. Medicines discontinued/held at this time are the patient's metformin 500 mg p.o. b.i.d. which was held secondary to the patient's elevated liver functions tests. The patient's atorvastatin was also held for the same reason. The patient's [place] was discontinued for this reason. The patient's Zofran was discontinued as well. The patient is discharged to home in stable and good condition. Order is in to nursing to discontinue all lines, IVs and telemetry before discharge. FOLLOWUP 1. The patient will follow up with Dr. Ramos at [facility] in one week. The patient will get a CBC and CMP done of this week and it will be sent to him. 2. Appointment with Darleen Atkins at [facility] on 02/26/2017 , at 12:45 p.m. Transportation has been set up for the patient at 12:30 p.m. She will discuss methamphetamine abuse and related issues. 4. As far as followup with Dr. Alonso would be concerned: In speaking with Dr. Alonso it was considered that it was most likely that the patient would not be able to make that followup anyway. Given her improvement in blood sugars , it was deemed not necessary at this point anyway. DIET Diet is diabetic. ACTIVITY As tolerated. PATIENT INSTRUCTIONS 1. If any issues worsen and/or new ones occur, the patient will be seen immediately. 2. If the patient cannot access her medications or make her appointments, she will let us know immediately. 3. The patient will abstain from the use of all methamphetamines, alcohol and other illicit drugs. She was consulted on this and tobacco cessation as well. 4. The patient will check her blood sugars before meals and before bedtime. She will do this daily. She will keep a log and send in this log to my nursing staff at [facility] every 3-4 days. She will call immediately if blood sugar greater than 300 and/or sugar less than 90 at any time should occur. WOUND CARE This is not applicable. EXPECTED SIGNS/SYMPTOMS 1. The pain above the patient's bladder as well as her fevers, chills, fatigue , weakness, back pain, cough, shortness of air should all stay resolved. PAIN MANAGEMENT/TREATMENT If the patient has any new or worsening pain, she will let us know right away. NOTIFY PHYSICIAN The patient will return to care immediately if any bladder pain, burning with urination, back pain, fevers, chills, body aches, abdominal pain, black stools, bloody stools, fatigue, weakness, cough, shortness of breath should occur. Phone number is given for contact of Dr. Ramos during business and after business hours. [employer] issues can be followed up on as an outpatient. PERTINENT LABORATORY DONE DURING THE STAY The patient's white count was normal throughout. Hemoglobin was 12.6 on admission and trended down to 11.0 on discharge. It was generally stable at around there. There was no clinical evidence of bleeding. This was dilutional. Next, hematocrit was 37.6 on admission and down to 34 by discharge. This was also dilutional and stable. The rest of the patient's CBCs were generally unremarkable. Coagulation studies on admission were normal. Sodiums were normal throughout. The patient's potassium did get as low as 3.2. It was replaced orally and was stable throughout the rest of the admission. The patient's bicarbonate, chloride, anion gap, kidney function were all unremarkable and generally normal. Blood sugars initially were in the 300s to 400s but trended down to 100s to 200s by discharge. Alkaline phosphatase on admission was 175. It did get to down to 157 but then trended up to 262 the day thereafter. By discharge it was coming down at 254. The patient did not have any abdominal pain to speak of at all. Patient's transaminases on admission were in the 50s, however trended up to the low to mid 100s by discharge. This was stable and also asymptomatic. Patient's AST was 17 on admission and trended up to 120 at one point. It had trended down to 115 by discharge. This was also asymptomatic. Magnesium and phosphorus were normal on admission. Other liver functions tests were unremarkable. Creatinine kinase on admission was normal. Troponins x 2 on admission were normal. C-reactive protein was 172 on admission. Brain natriuretic peptide was normal x 2 while here. Lactic acid, procalcitonin, TSH were all normal on admission. Urinalysis on admission was notable for a trace amount of protein as well as 3+ glucose, 2+ ketones, 1+ occult blood, positive nitrate, 1+ leukocyte esterase, 20-30 white blood cells per high-power field as well as 3+ bacteria. Urine drug screen showed positive for urine amphetamines and methamphetamines and was otherwise negative. Serum ketones were 1.2 on admission and elevated and came down to normal the day thereafter at 0.30. Respiratory PCR on admission was negative. ACUTE HEPATITIS PANEL IS STILL PENDING ON DISCHARGE. PERTINENT MICROBIOLOGY Blood cultures x 2 done on admission were negative to date. Urine culture done 02/21/2017 grew out greater than 100,000 colony forming units of E. coli. This was pansensitive. PERTINENT IMAGING AND OTHER TESTS DONE DURING THE STAY EKGs done during the stay showed generalized low voltage which is chronic. They were normal sinus rhythm. Rates were generally normal. There were no acute ST/ T-wave changes and the intervals were generally unremarkable. There were no pathologic Q-waves. [place] was normal. Otherwise, these were unremarkable. The patient had two of these done while here. CT of the abdomen and pelvis with kidney stone protocol was completely normal. CT of the chest with pulmonary embolism protocol did show no pulmonary embolism. There was lower lobe atelectasis versus pneumonia. Clinically, as time went on, this appeared more consistent with atelectasis. Echocardiogram done 02/24/2017 showed normal left ventricular systolic function with an ejection fraction of around 71%. There was mild tricuspid regurgitation with normal pulmonary artery pressure. There was mild pulmonary insufficiency. This was otherwise unremarkable. HISTORY OF PRESENT ILLNESS AND HOSPITAL COURSE This is a pleasant but profoundly noncompliant 56-year-old female known to our clinic. She was last in her usual state of health about 5-6 days previous to admission. At that time she started feeling progressively weak and also developed pain and tenderness over her bladder area as well as the bilateral lower quadrants of her abdomen. She also developed some dysuria and increased urinary frequency. Aside from this, she had been somewhat more short of air that her usual baseline and somewhat wheezy. She was noted to have a runny nose and some upper respiratory symptoms as well as a cough with mild sputum production. There was no hemoptysis. She had been in the emergency room the day previous and I will direct you to those notes for further information on that. This is in our electronic medical record. She was seen in our office the day thereafter. She was noted to be clinically dehydrated and her sugars noted to be in the 500s and even 600s at times. Given the patient's dehydration , noncompliance and high blood sugars, it was opted to admit the patient for further workup. Please see above for the extensive imaging and laboratory evaluation undertaken for all these problems while here. In regards to the patient's dehydration, dysuria and urinary frequency. The patient did end up having a urinary tract infection. There was no clinical evidence of a pyelonephritis. The urine culture grew out findings as noted above. The patient was put on Cipro initially and then transitioned to Levaquin of which she will finish out four more days as an outpatient. By discharge, her urinary symptoms had completely resolved as did her general systemic feeling of illness. Levaquin was chosen as there was mention of atelectasis versus infiltrate on her CT and this would cover a pneumonia as well. Please see below for further information on that. A sepsis workup was unremarkable while here. This was a resolved problem symptomatically by discharge. In regards to the patient's type 2 diabetes and hyperglycemia. This is likely from poor compliance. The patient has been on pre-meal insulin in the past but was not taking it. It was questionable as to how much of her insulin she was taking anyway. She was restarted on her home dose of Lantus at 75 units b.i.d. Her blood sugars did improve into the 200s just on her usual dose. She was increased to 75 units b.i.d. and her blood sugars were in the 100s to low 200s.. Dr. Alonso was consulted and agreed with current plan of care. Given the patient's noncompliance with pre-meal insulin, we will just go with a long- acting as it is fewer injections for her to manage during the day. Please see above for orders to check blood sugars as well as call parameters. Please see above for the extensive imaging and laboratory evaluation undertaken during the stay. The patient was restarted on her home lisinopril upon discharge. Statin medication as well as metformin on discharge were held secondary to elevated liver functions tests. These can be reevaluated at a later date. The patient' s aspirin was continued also. The patient did have an isolated episode of hypotension and hypoxia on the night of admission. Please see above for the extensive workup regarding this. This effectively resolved on its own and the workup above was unremarkable. The patient is being treated for pneumonia if it would necktie turner with the Levaquin anyway and clinically, by discharge, her cough and sputum production had completely resolved. Respiratory PCR was unremarkable. Sputum culture and gram stain was ordered but she never produced enough sputum for this to be obtained. Pneumonia antigens were not needed as by the time the CT came back she was already improving. She was treated with a mild COPD exacerbation as noted above and will follow this clinically as an outpatient. There were no more episodes of hypotension or hypoxemia during this stay. It effectively resolved and thus no further workup was completed. In regards to the patient's elevated liver functions testing. This was completely asymptomatic. Please see above for the testing done. On the off chance that it was the Cipro causing these problems the patient was changed to Levaquin. The liver functions tests were trending down the day of discharge and will be followed in three days. Acute hepatitis panel is pending and an HIV can be followed as an outpatient. The patient did have a mild anemia by day 2 of admission. This was likely from the IV fluids given for the urinary tract infection. This will be followed as an outpatient. There was no evidence of outward bleeding while here. In regards to the patient's diabetic ketosis and ketonemia. There was no clinical or lab evidence of ketoacidosis or hyperosmolar state. This had resolved by the second day of admission. This resolved simply with IV fluids. In regards to the patient's back pain. This clinically appears to be sacroiliac joint dysfunction and follows a very typical pattern for this. This can be followed as an outpatient and was actually gone by discharge. There was no clinical or physical exam evidence of neurovascular compromise in the lower extremities. In regards to the patient's methamphetamine and tobacco abuse. The patient was consulted about cessation of these. Please see above for the consult with the lawrence Briscoe, as an outpatient. In regards to the patient's diabetic neuropathy. The patient was maintained on her gabapentin and this was stable. In regards to the hyperlipidemia. The statin medication is on hold for the moment secondary to the above. In regards to the patient's hypertension. The patient's lisinopril was held initially given the low blood pressures, however was restarted on discharge. This will be followed as noted above. In regards to the patient's hypokalemia. This was replaced and normal throughout the rest of her stay. In regards to the patient's depression and anxiety. She was maintained on the buspirone and Pristiq as noted above. She did state that she was on the 15 mg twice per day of buspirone and thus this was changed in her chart. All other chronic medical conditions stable and no changes to plan of care at this time. For DVT prophylaxis the patient was on subcutaneous Lovenox while here as well as ambulated t.i.d. with assist. For GI prophylaxis the patient was maintained on oral diet while here. The patient was a DO NOT RESUSCITATE and DO NOT INTUBATE while here. DISPOSITION Discharge today in stable and good condition. JEANCARLOS
== END 2017-02-24 17:25 | disposition home or self-care (01) | DRG 638 ==
LOC: MED
PROVIDERS: ADMIT Internal Medicine; ATTEND Internal Medicine